=== PATIENT | male | born 1950 | race Caucasian/White ===

== ENCOUNTER 2018-05-13 14:18 | Outpatient (CLI) | payer MEDICARE ==
--- NOTE | 2018-05-13 16:20 | CT ---
CT HEAD: Date: 05/13/18 COMPARISON: None. HISTORY: Intractable headaches. TECHNIQUE: Serial axial CT imaging obtained at 5 mm intervals from vertex through skull base without contrast. FINDINGS: Heterogeneously hypodense mass in right occipital lobe noted measuring 4.0 cm. There is adjacent vaso genic edema involving the right parietal and occipital lobes with a mild degree of mass effect on the posterior horn of the right lateral ventricle. No significant midline shift is seen at this time. En cephalomalacia noted in the frontal lobe on the right. 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 No intracranial hemorrhage. Imaged paranasal sinuses/mastoid air cells well aerated. No dis placed calvarial fracture IMPRESSION: 4.0 cm heterogeneously hypodense mass lesion in the right occipital lobe. This is suspicious for unde rlying malignancy, such as metastatic disease or primary brain neoplasm. Results called to Dr. Espinoza at 3pm on 05/13/18. CODE CR. POS: [facility]
--- NOTE | 2018-05-13 16:34 | RAD ---
CHEST TWO VIEWS: HISTORY: Unintentional weight loss. COMPARISON: Chest radiograph from 2016. FINDINGS: There is a spiculated mass in the right upper lobe with abnormal calcifications. This measures 2.5 c m. There are also other satellite nodules in the right upper lobe. A port catheter is in place with the tip at the inferior SVC. Old right-sided rib fracture. No acute osseous abnormality. IMPRESSION: Abnormal right upper lobe mass with small satellite nodules, suggesting malignancy. CT chest is lorin mmended. CODE T
== END 2018-05-13 14:19 | disposition home or self-care (01) ==
LOC: NAV RAD 14:18
PROVIDERS: ATTEND Nurse Practitioner Family
DX: R51 Headache (principal); R63.4 Abnormal weight loss; G93.89 Other specified disorders of brain; R91.8 Other nonspecific abnormal finding of lung field; Z87.891 Personal history of nicotine dependence
CPT/HCPCS: 70450; 71046

== ENCOUNTER 2018-05-14 11:14 | Outpatient (CLI) | payer MEDICARE ==
[~2018-05-14 11:14] MED LIST: Iopamidol 370 76% 100 ML VIAL ONE
--- NOTE | 2018-05-14 13:52 | CT ---
CT THORAX WITH CONTRAST: Date: 05/14/18 HISTORY: 68-year-old male with right upper lobe mass. Abnormal chest radiograph. TECHNIQUE: IV iodinated contrast media: Administered. COMPARISON: Chest CT of 04/24/13. FINDINGS: There is a new, approximately 5 x 3.5 x 4 cm right upper lobe pulmonary mass with broad base against the lateral pleural surface, and irregular margins. Located a short distance inferior to it, there are at least two satellite noncalcified pulmonary nodu les, each on the order of 1 cm in size. There is another very irregularly shaped pulmonary mass located superiorly and posteriorly relative t o the main large right upper lobe mass, measuring approximately 1.5 x 1 x 3 cm. There is a 0.4 cm noncalcified pulmonary nodule in the right lower lobe, close to the posterior pleur al surface. It is unknown whether or not this is new because this area had another, larger confluent opacity on the prior CT, which has since cleared. In the contralateral apicoposterior segment of the left upper lobe, located posteriorly, there were t wo previously demonstrated nonspecific pulmonary nodules, one located medially and the other located laterally. Both have grown. The more lateral one was previously approximately 1 cm. It is now 2 x 1 x 2 cm and very spiculated. The more medial one was previously 0.7 cm. It is now 1 x 0.7 x 1.7 cm. Adjacent to these, there are moderately large left apical bullae. There are also numerous moderate an d small contralateral right apical bullae. In addition to these findings of paraseptal emphysema, the re is also centrilobular emphysema in the bilateral upper lobes. There is a new finding of large right mediastinal lymph nodes contiguously extending from the right p aratracheal region at the upper mediastinum, to the subcarinal region and right hilum. The boundaries between each lymph node is not distinct, and therefore measurements of discrete lymph nodes is not p ossible. Instead, the greatest craniocaudal dimension of the entire conglomeration from the upper par atracheal edge to the subcarinal region is approximately 8 cm. At the level anterior to the origin of the right mainstem bronchus, the anteroposterior and transverse dimensions of the mediastinal mass a re approximately 4 x 3.5 cm, displacing the superior vena cava anterolaterally. At the level of the l ower trachea, the mediastinal lymphadenopathy slightly crosses the midline level of the cj by reymundo roximately 2 cm. It also does so at the level of the cj. Trachea and major bronchi are patent and clear. There is no pleural effusion. No thoracic aortic aneu rysm or dissection. No cardiomegaly. No adrenal mass. No obvious destructive osseous lesion. IMPRESSION: 1. Moderately large right upper lobe pulmonary mass is evidence for primary lung cancer. 2. Interval growth of contralateral left upper lobe pulmonary lesions, suspicious for interval growt h of additional foci of primary lung cancers. 3. Several satellite nodules and one additional moderate sized mass, adjacent to the main, large rig ht upper lobe lung cancer mass. 4. Malignant mediastinal lymphadenopathy that slightly crosses the midline to the left. 5. Distant nonspecific tiny 0.4 cm pulmonary nodule in the right lower lobe. 6. Panlobular emphysema of the upper lobes. JUST[facility] [place] POS: [facility]
== END 2018-05-14 11:15 | disposition home or self-care (01) ==
LOC: NAV RAD 11:14
PROVIDERS: ATTEND Nurse Practitioner Family
DX: R91.8 Other nonspecific abnormal finding of lung field (principal); J43.9 Emphysema, unspecified; C34.11 Malignant neoplasm of upper lobe, right bronchus or lung; R59.0 Localized enlarged lymph nodes
CPT/HCPCS: 71260